=== PATIENT | male | born 1960 | race African-American/Black ===

== ENCOUNTER → 2022-03-29 | Outpatient (CLI) | payer OTHER ==
--- NOTE | 2022-03-29 16:31 | RAD ---
XR LUMBAR SPINE 2-3V History: Reason: LOW BACK PAIN. / Spl. Instructions: Technique: 2 views lumbar spine. Comparison: None. Findings: Mild retrolisthesis L3 on L4. Normal vertebral body height. No acute fracture. Mild to moderate degen erative disc changes most prominent L3-L4 and L5-S1. Facet arthropathy. Vascular calcifications. Impression: 1. Mild to moderate lumbar spondylosis. Electronically signed by: Jesse Echeverria DO (03/29/2022 4:29 PM) [id number]
== END ==
LOC: RAD 08:54
PROVIDERS: ATTEND Family Medicine
DX: Z02.71 Encounter for disability determination (principal); M43.16 Spondylolisthesis, lumbar region; M47.816 Spondylosis without myelopathy or radiculopathy, lumbar region
CPT/HCPCS: 72100